=== PATIENT | male | born 1975 | race Caucasian/White ===

== ENCOUNTER 2024-07-07 16:19 | Emergency (ER) | payer SELFPAY ==
--- NOTE | 2024-07-07 16:45 | EDPHYS ---
Physician Documentation [facility] Name: Te Mckeon Age: 49 yrs Sex: Male : 1975 Arrival Date: 07/07/2024 Time: 16:19 Bed IW2 Private MD: ED Physician Mcihael Stringer HPI: 07/07 21:39 This 49 yrs old Male presents to ER via Ambulatory with complaints of Tongue injury, kb Ear Pain. 21:39 Pt is a 49 year old male who presents for evaluation of tongue laceration. States he kb fell down the stairs 4 days ago and cut his tongue. Came in to make sure it wasn't getting infected. States the pain radiates to ear and throat. . Historical: - Allergies: 16:37 No Known Allergies; hb - Home Meds: 16:37 None [Active]; hb - PMHx: 16:37 None; hb - PSHx: 16:37 Appendectomy; hb - Immunization history:: Adult Immunizations up to date. - Infectious Disease History:: Denies. - Social history:: Smoking status: Patient reports the use of cigarette tobacco products. ROS: 21:39 Constitutional: As per HPI kb Exam: 21:39 Constitutional: This is a well developed, well nourished patient who is awake, alert, kb and in no acute distress. Head/Face: Normocephalic, atraumatic. ENT: Moist Mucous membranes Neck: Trachea midline and no cervical lymphadenopathy. Supple, full range of motion without nuchal rigidity, or vertebral point tenderness. No Meningismus. Cardiovascular: Regular rate Respiratory: Respirations even and unlabored. No increased work of breathing. Talking in full sentences Skin: Warm, dry with normal turgor. Normal color. MS/ Extremity: Pulses equal, no cyanosis. Neurovascular intact. Full, normal range of motion. Neuro: Awake and alert, GCS 15, oriented to person, place, time, and situation. 21:39 ENT: External ear(s): are unremarkable, Ear canal(s): are normal, TM's: are normal, Nose: is normal, Mouth: Tongue: has a laceration, approximately 3cm(s), Posterior pharynx: is normal, Vital Signs: 16:36 BP 147 / 100; Pulse 94; Resp 18; Temp 97.6; Pulse Ox 100% on R/A; Weight 86.18 kg; hb Height 5 ft. 10 in. ; Pain 8/10; 16:36 Body Mass Index 27.26 (86.18 kg, 177.8 cm) hb 16:36 Pain Scale: Adult hb MDM: 16:31 Medical Screening Exam initiated kb 21:40 Differential diagnosis: laceration, fracture, contusion, wound infection. Data kb reviewed: vital signs, nurses notes. Test considered but Not performed: CT: ct head and facial bones considered but pt has no bony tenderness, states he just wanted to make sure his tongue wasn't infected. Counseling: I had a detailed discussion with the patient and/or guardian regarding the historical points, exam findings, and any diagnostic results supporting the discharge/admit diagnosis, the need for outpatient follow up, a family practitioner, to return to the emergency department if symptoms worsen or persist or if there are any questions or concerns that arise at home. Administered Medications: No medications were administered Disposition Summary: 07/07/24 16:45 Discharge Ordered Notes: Location: Home kb Condition: Stable kb Diagnosis - Laceration of tongue kb Followup: kb - With: Emergency Department - When: As needed - Reason: Worsening of condition Followup: kb - With: Private Physician - When: 2 - 3 days - Reason: Recheck today's complaints, Continuance of care, Re-evaluation by your physician Discharge Instructions: - Discharge Summary Sheet kb - Tongue Laceration, [facility] kb Forms: - Medication Reconciliation Form kb - Antibiotic Education kb - Prescription Opioid Use kb - Patient Portal Instructions kb - Leadership Thank You Letter kb Signatures: Monica Fonseca FNP-C FNP-Ckb Baxter, Heather, RN RN hb
--- NOTE | 2024-07-07 16:45 | ER ---
Nurse's Notes [facility] Name: Te Mckeon Age: 49 yrs Sex: Male : 1975 Arrival Date: 07/07/2024 Time: 16:19 Bed IW2 Private MD: Diagnosis: Laceration of tongue Presentation: 07/07 16:36 Chief complaint: Slipped down stairs 4 night ago and bit right side of tongue, now c/o hb pain that radiates to right face and ear 04/25.. Coronavirus screen: At this time, the client does not indicate any symptoms associated with coronavirus-19. Ebola Screen: No symptoms or risks identified at this time. Initial Sepsis Screen: Does the patient meet any 2 criteria? No. Patient's initial sepsis screen is negative. Does the patient have a suspected source of infection? No. Patient's initial sepsis screen is negative. Risk Assessment: Do you want to hurt yourself or someone else? Patient reports no desire to harm self or others. Onset of symptoms was July 03, 2024. 16:36 Method Of Arrival: Ambulatory hb 16:36 Acuity: LITA 4 hb Historical: - Allergies: 16:37 No Known Allergies; hb - Home Meds: 16:37 None [Active]; hb - PMHx: 16:37 None; hb - PSHx: 16:37 Appendectomy; hb - Immunization history:: Adult Immunizations up to date. - Infectious Disease History:: Denies. - Social history:: Smoking status: Patient reports the use of cigarette tobacco products. Screenin:59 [facility] ED Fall Risk Assessment (Adult) History of falling in the last 3 months, ll1 including since admission No falls in past 3 months (0 pts) Confusion or Disorientation No (0 pts) Intoxicated or Sedated No (0 pts) Impaired Gait No (0 pts) Mobility Assist Device Used No (0 pt) Altered Elimination No (0 pt) Score/Fall Risk Level 0 - 2 = Low Risk Maintained a safe environment, Hourly rounding (assess needs \T\ fall precautionary measures) done. Abuse screen: Denies threats or abuse. Nutritional screening: No deficits noted. Tuberculosis screening: No symptoms or risk factors identified. Assessment: 16:58 General: Appears uncomfortable, Behavior is calm, cooperative, appropriate for age. ll1 Pain: Complains of pain in tongue Pain radiates to right ear Quality of pain is described as aching. EENT: Reports pain in right ear and tongue. Vital Signs: 16:36 BP 147 / 100; Pulse 94; Resp 18; Temp 97.6; Pulse Ox 100% on R/A; Weight 86.18 kg; hb Height 5 ft. 10 in. ; Pain 8/10; 16:36 Body Mass Index 27.26 (86.18 kg, 177.8 cm) hb 16:36 Pain Scale: Adult hb ED Course: 16:24 Patient arrived in ED. mr 16:31 [facility]C [facility]. kb 16:31 Michael Stringer MD is Attending Physician. kb 16:37 Triage completed. hb 16:38 Arm band placed on. hb 16:59 No provider procedures requiring assistance completed. Patient did not have IV access ll1 during this emergency room visit. 17:00 Patient has correct armband on for positive identification. Provided Education on: ll1 return to ED for worsening symptoms. Administered Medications: No medications were administered Medication: 16:59 VIS not applicable for this client. ll1 Outcome: 16:45 Discharge ordered by MD. kb 16:59 Discharged to home ambulatory, ll1 16:59 Condition: stable 16:59 Discharge instructions given to patient, Instructed on discharge instructions, follow up and referral plans. Demonstrated understanding of instructions, follow-up care, left with verbal discharge instructions only 17:00 Patient left the ED. ll1 Signatures: Monica Fonseca FNP-C FNP-Elisabeth Atkins, Reg Reg mr Yamile See RN RN Paulette Beltran RN RN ll1
[2024-07-07 19:53] VITALS: BP 147/100; TEMP 97.6; O2SAT 100
== END 2024-07-07 17:00 | disposition home or self-care (01) ==
LOC: ER 16:19
DX: S01.512A Laceration without foreign body of oral cavity, initial encounter (principal); F17.210 Nicotine dependence, cigarettes, uncomplicated
CPT/HCPCS: 99282